=== PATIENT | female | born 1975 | race Caucasian/White ===

== ENCOUNTER 2016-10-09 22:05 | Emergency (ER) | payer OTHER ==
[~2016-10-09 22:05] MED LIST: ADDERALL 30 MG30 M1 PO; ADDERALL PO; ASPIRIN81 M2 PO; BACTRIM DS TABL1 TAB PO; BAYER CHEWABLE81 MG PO; DESYREL50 MG PO; FISH OIL 500 MG1 CAP PO; FLEXERIL10 MG PO; KCL PO; KLONOPIN1 MG PO; LINZESS290 MCG PO; LORTAB 7.5-5001 TAB PO; NATURAL VITA400 UNI3 PO; PROZAC PO; PYRIDIUM PO; ULTRAM PO; VITAMIN C500 M5 PO
[2016-10-22] MEDS ORDERED: ADDERALL 30 MG30 M1 PO (10:34)
[2016-10-22] MEDS ORDERED: KLONOPIN1 MG PO (10:34)
[2016-10-22] MEDS ORDERED: TRAMADOL HCL50 M1 PO (23:43)
== END 2016-10-09 22:30 | disposition home or self-care (01) ==
LOC: CFTX 22:05
DX: T23.102A Burn of first degree of left hand, unspecified site, initial encounter (principal); T23.122A Burn of first degree of single left finger (nail) except thumb, initial encounter; X19.XXXA Contact with other heat and hot substances, initial encounter; Y92.009 Unspecified place in unspecified non-institutional (private) residence as the place of occurrence of the external cause
CPT/HCPCS: 90471; 90715; 99283

== ENCOUNTER → 2016-10-22 | Outpatient (CLI) | payer OTHER ==
[~2016-10-22] MED LIST changes: +TRAMADOL HCL50 M1 PO
== END | disposition home or self-care (01) ==
LOC: CSSDAY 15:20
DX: D50.9 Iron deficiency anemia, unspecified (principal); N92.1 Excessive and frequent menstruation with irregular cycle; T45.4X5D Adverse effect of iron and its compounds, subsequent encounter
CPT/HCPCS: 96374; Q0138